=== PATIENT | male | born 1930 | race Caucasian/White ===

== ENCOUNTER 2016-12-04 13:48 | Inpatient (IN) | payer OTHER ==
[~2016-12-04] VITALS: Ht 167.6 cm; Wt 110.0 kg
[2016-12-04 14:25] LABS: EOSINOPHIL (%) 2.2 % (0-5); EOSINOPHIL COUNT 0.2 K/uL (0-0.3); HEMATOCRIT 31.8 % (38.0-50.0); IMMATURE GRANULOCYTE (%) 0.5 % (0.0-0.7); IMMATURE GRANULOCYTE COUNT 0.5 K/uL; LYMPHOCYTE COUNT 1.1 K/uL (1.0-2.8); MCHC 32.7 G/DL (30.0-36.0); MCV 91.6 FL (86-99); MEAN PLAT.VOLUME 8.5 uM^3 (9.0-12.4); MONOCYTE (%) 6.1 % (3-12); MONOCYTE COUNT 0.7 K/uL (0-0.8); NEUTROPHIL (%) 80.5 % (45-76); NEUTROPHIL COUNT 8.5 K/uL (1.8-6.4); PLATELET COUNT 409 K/uL (156-360); RBC DIS.WIDTH-CV 13.4 % (11.8-14.6); RBC DIS.WIDTH-SD 43.4 % (39-53); RED BLOOD COUNT 3.47 M/uL (4.00-5.50); WHITE BLOOD COUNT 10.6 K/uL (4.1-10.2)
[2016-12-04 14:35] LABS: CHLORIDE 107 mEq/L (99-109); POTASSIUM 4.1 mEq/L (3.7-5.4)
[2016-12-04 14:36] LABS: SODIUM 141 mEq/L (136-147)
[2016-12-04 14:37] LABS: GLUCOSE 119 mg/dL (70-99)
[2016-12-04 14:39] LABS: ANION GAP 13 MEQ/L (2-14)
[2016-12-04 14:41] LABS: GFR ESTIMATE (CALCULATED) > 59 mL/min/
[2016-12-04 14:42] LABS: UREA NITROGEN (BUN) 14 mg/dL (9-23)
[2016-12-04 14:47] LABS: TROP-I INTERPRETATION NEGATIVE; TROPONIN-I 0.01 ng/mL (0.0-0.30)
[2016-12-04] MEDS ORDERED: NORVASC5 MG PO (16:22)
[2016-12-04] MEDS ORDERED: FUROSEMIDE80 MG PO (16:23)
[2016-12-04] MEDS ORDERED: ATORVASTATIN CA10 MG PO (16:23)
[2016-12-04] MEDS ORDERED: LIDODERM 5% P1 PATCH TD (16:31)
[2016-12-04] MEDS ORDERED: POTASSIUM CHLO20 ME2 PO (16:32)
[2016-12-04] MEDS ORDERED: TAMSULOSIN HCL0.4 MG PO (16:32)
[2016-12-04] MEDS ORDERED: COLACE100 MG PO (16:36)
[2016-12-04] MEDS ORDERED: SENNA8.6 MG PO (16:38)
[2016-12-04] MEDS ORDERED: ACETAMINOPHEN325 M1 PO (16:39)
[2016-12-04 19:04] LABS: ADD MIUA? YES; BILIRUBIN NEGATIVE; BLOOD MODERATE; COLOR YELLOW ((YELLOW)); GLUCOSE (STRIP) NEGATIVE; KETONES NEGATIVE; LEUKOCYTES NEGATIVE; NITRITE NEGATIVE; PROTEIN (STRIP) NEGATIVE; SPECIFIC GRAVITY 1.013 (1.000-1.030); UROBILINOGEN 0.2 MG/DL (0.2-1.0)
[2016-12-04 19:17] LABS: BACTERIA NONE SEEN; CASTS NONE SEEN /LPF; CRYSTALS NONE SEEN; EPITHELIAL CELLS RARE; MUCUS NONE SEEN; PATHOLOGICAL CAST NONE SEEN; RED BLOOD CELLS 30-40 /HPF (0-5); SMALL ROUND CELL NONE SEEN; UCUL ADDED? NO; WHITE BLOOD CELLS 0-5 /HPF (0-5); YEAST-LIKE CELL NONE SEEN
[2016-12-04 21:19] VITALS: BP 138/67
[2016-12-05] VITALS (7 sets, daily range): BP systolic 126–165; BP diastolic 57–72
[2016-12-05 06:44] LABS: MCH 29.3 PG (29.0-34.0); MCV 91.5 FL (86-99); MEAN PLAT.VOLUME 8.8 uM^3 (9.0-12.4); PLATELET COUNT 375 K/uL (156-360); RBC DIS.WIDTH-CV 13.9 % (11.8-14.6); RBC DIS.WIDTH-SD 45.8 % (39-53); RED BLOOD COUNT 3.28 M/uL (4.00-5.50); WHITE BLOOD COUNT 8.7 K/uL (4.1-10.2)
[2016-12-05 07:13] LABS: ANION GAP 6 MEQ/L (2-14); CHLORIDE 107 MEQ/L (99-109); GFR ESTIMATE (CALCULATED) > 59 mL/min/; GLUCOSE 96 mg/dL (70-99); POTASSIUM 3.8 MEQ/L (3.7-5.4); SAMPLE HEMOLYSIS CHECK 0; SAMPLE ICTERIC CHECK 0; SAMPLE LIPEMIA CHECK 0; SODIUM 141 MEQ/L (136-147); UREA NITROGEN (BUN) 12 mg/dL (9-23)
[2016-12-06 03:45] VITALS: BP 134/86
[2016-12-06 07:22] VITALS: BP 127/58
[2016-12-06 11:47] VITALS: BP 161/91
[2016-12-06 16:00] VITALS: BP 134/63
[2016-12-06] MEDS ORDERED: LEVAQUIN500 MG PO (17:02)
[2016-12-06] MEDS ORDERED: LO-DOSE ASPIRIN81 M2 PO (17:05)
[2016-12-06 19:33] VITALS: BP 128/69
[2016-12-06 23:49] VITALS: BP 136/64
[2016-12-07 03:20] VITALS: BP 129/68
[2016-12-07 07:30] VITALS: BP 145/65
[2016-12-07] MEDS ORDERED: PRAVACHOL40 MG PO (12:34)
== END 2016-12-07 10:42 | DRG 69 ==
LOC: EME 13:48 → EDOF 16:17 → 5SOUTH 17:36 → EDOF 17:36 → 5SOUTH 20:37
PROVIDERS: Emergency Medicine; Internal Medicine
DX: G45.9 Transient cerebral ischemic attack, unspecified (principal); J18.9 Pneumonia, unspecified organism; J90 Pleural effusion, not elsewhere classified; J98.11 Atelectasis; D68.59 Other primary thrombophilia; E66.01 Morbid (severe) obesity due to excess calories; Z68.41 Body mass index [BMI] 40.0-44.9, adult; D64.9 Anemia, unspecified; G43.909 Migraine, unspecified, not intractable, without status migrainosus; I10 Essential (primary) hypertension; N28.89 Other specified disorders of kidney and ureter; Z87.891 Personal history of nicotine dependence; Z86.73 Personal history of transient ischemic attack (TIA), and cerebral infarction without residual deficits; F43.20 Adjustment disorder, unspecified
CPT/HCPCS: 70450; 70551; 71010; 71020; 80048; 81003; 84145 90; 84484; 85025; 85027; 87040; 87070; 87205; 93005; 93306; 93880; 97530 GO; 99202; 99281; 99285; J0456; J0692; J1644; J7040; J7050

== ENCOUNTER 2016-12-07 10:46 | Inpatient (IN) | payer OTHER ==
[~2016-12-07] VITALS: Ht 165.1 cm; Wt 107.9 kg
[~2016-12-07 10:46] MED LIST: ACETAMINOPHEN325 M1 PO; ATORVASTATIN CA10 MG PO; COLACE100 MG PO; FUROSEMIDE80 MG PO; LEVAQUIN500 MG PO; LIDODERM 5% P1 PATCH TD; LO-DOSE ASPIRIN81 M2 PO; NORVASC5 MG PO; POTASSIUM CHLO20 ME2 PO; SENNA8.6 MG PO; TAMSULOSIN HCL0.4 MG PO
[2016-12-07 11:12] VITALS: BP 127/62
[2016-12-07] MEDS ORDERED: PRAVACHOL40 MG PO (12:34)
[2016-12-07 15:16] VITALS: BP 148/68
[2016-12-07 23:15] VITALS: BP 158/69
[2016-12-08 05:22] LABS: HEMATOCRIT 31.1 % (38.0-50.0); MCH 29.7 PG (29.0-34.0); MCHC 32.8 G/DL (30.0-36.0); MCV 90.4 FL (86-99); MEAN PLAT.VOLUME 9.1 uM^3 (9.0-12.4); PLATELET COUNT 390 K/uL (156-360); RBC DIS.WIDTH-CV 13.4 % (11.8-14.6); RBC DIS.WIDTH-SD 44.2 % (39-53); RED BLOOD COUNT 3.44 M/uL (4.00-5.50); WHITE BLOOD COUNT 7.8 K/uL (4.1-10.2)
[2016-12-08 05:47] VITALS: BP 151/55
[2016-12-08 06:04] LABS: ALKALINE PHOSPHATASE 54 IU/L (3-129); ANION GAP 7 MEQ/L (2-14); CHLORIDE 105 MEQ/L (99-109); GFR ESTIMATE (CALCULATED) > 59 mL/min/; GLUCOSE 93 mg/dL (70-99); POTASSIUM 3.6 MEQ/L (3.7-5.4); SAMPLE HEMOLYSIS CHECK 0; SAMPLE ICTERIC CHECK 0; SAMPLE LIPEMIA CHECK 0; SODIUM 138 MEQ/L (136-147); TOTAL BILIRUBIN 0.5 MG/DL (0.0-1.0); UREA NITROGEN (BUN) 10 mg/dL (9-23)
[2016-12-09 05:32] VITALS: BP 134/63
[2016-12-09 06:02] LABS: ANION GAP 9 MEQ/L (2-14); CHLORIDE 104 MEQ/L (99-109); GFR ESTIMATE (CALCULATED) > 59 mL/min/; GLUCOSE 93 mg/dL (70-99); POTASSIUM 3.9 MEQ/L (3.7-5.4); SAMPLE HEMOLYSIS CHECK 0; SAMPLE ICTERIC CHECK 0; SAMPLE LIPEMIA CHECK 0; SODIUM 137 MEQ/L (136-147); UREA NITROGEN (BUN) 13 mg/dL (9-23)
[2016-12-09 15:39] VITALS: BP 133/62
[2016-12-10 05:57] VITALS: BP 110/58
[2016-12-10 09:09] VITALS: BP 123/57
[2016-12-10 15:47] VITALS: BP 113/55
[2016-12-10 18:10] VITALS: BP 149/69
[2016-12-11 05:39] VITALS: BP 141/69
[2016-12-11 15:23] VITALS: BP 110/59
[2016-12-12 05:33] VITALS: BP 136/63
[2016-12-12 15:19] VITALS: BP 100/50
[2016-12-13 04:19] VITALS: BP 134/60
[2016-12-13 15:20] VITALS: BP 124/60
[2016-12-13 15:23] VITALS: BP 124/60
[2016-12-13] MEDS ORDERED: NORVASC5 MG PO (21:21)
[2016-12-13] MEDS ORDERED: TAMSULOSIN HCL0.4 MG PO (21:21)
[2016-12-13] MEDS ORDERED: CITALOPRAM HBR10 MG PO (21:21)
[2016-12-13] MEDS ORDERED: FUROSEMIDE80 MG PO (21:21)
[2016-12-13] MEDS ORDERED: ATORVASTATIN CA10 MG PO (21:21)
[2016-12-13] MEDS ORDERED: POTASSIUM CHLO20 ME2 PO (21:21)
[2016-12-14 05:41] VITALS: BP 141/67
== END 2016-12-14 14:10 | disposition home health service (06) | DRG 555 ==
LOC: 2EASTP 10:46 → 3WEST 10:47
PROVIDERS: Physical Medicine & Rehabilitation Pain Medicine
PROC: F07M0ZZ Range of Motion and Joint Mobility Treatment of Musculoskeletal System - Whole Body (ICD-10-PCS; principal; 2016-12-07)
DX: R26.2 Difficulty in walking, not elsewhere classified (principal); J18.9 Pneumonia, unspecified organism; H53.2 Diplopia; R42 Dizziness and giddiness; F43.20 Adjustment disorder, unspecified; I10 Essential (primary) hypertension; N40.0 Benign prostatic hyperplasia without lower urinary tract symptoms; E66.9 Obesity, unspecified; Z86.73 Personal history of transient ischemic attack (TIA), and cerebral infarction without residual deficits; E78.5 Hyperlipidemia, unspecified; Z87.891 Personal history of nicotine dependence; E83.51 Hypocalcemia; Z68.39 Body mass index [BMI] 39.0-39.9, adult
CPT/HCPCS: 80048; 80053; 85027; 97110 GO; 97530 GP; 99202; J1644

== ENCOUNTER 2017-04-04 12:55 | Inpatient (IN) | payer OTHER, BC ==
[~2017-04-04] VITALS: Ht 162.6 cm; Wt 98.8 kg
[~2017-04-04 12:55] MED LIST changes: +CITALOPRAM HBR10 MG PO; +PRAVACHOL40 MG PO
[2017-04-04 13:33] LABS: HEMATOCRIT 32.1 % (38.0-50.0); MCHC 33.6 G/DL (30.0-36.0); MCV 86.3 FL (86-99); MEAN PLAT.VOLUME 8.5 uM^3 (9.0-12.4); PLATELET COUNT 300 K/uL (156-360); RBC DIS.WIDTH-CV 13.1 % (11.8-14.6); RBC DIS.WIDTH-SD 40.9 % (39-53); RED BLOOD COUNT 3.72 M/uL (4.00-5.50); WHITE BLOOD COUNT 7.6 K/uL (4.1-10.2)
[2017-04-04 13:56] LABS: CHLORIDE 97 mEq/L (99-109); POTASSIUM 5.5 mEq/L (3.7-5.4); SODIUM 129 mEq/L (136-147)
[2017-04-04 13:57] LABS: GLUCOSE 100 mg/dL (70-99)
[2017-04-04 13:59] LABS: ANION GAP 10 MEQ/L (2-14)
[2017-04-04 14:01] LABS: GFR ESTIMATE (CALCULATED) > 59 mL/min/
[2017-04-04 14:02] LABS: UREA NITROGEN (BUN) 18 mg/dL (9-23)
[2017-04-04 14:25] LABS: ADD MIUA? NO; BILIRUBIN NEGATIVE; BLOOD NEGATIVE; COLOR YELLOW ((YELLOW)); GLUCOSE (STRIP) NEGATIVE; KETONES NEGATIVE; LEUKOCYTES NEGATIVE; NITRITE NEGATIVE; PROTEIN (STRIP) NEGATIVE; SPECIFIC GRAVITY 1.015 (1.000-1.030); UCUL ADDED? NO; UROBILINOGEN 0.2 MG/DL (0.2-1.0)
[2017-04-04] MEDS ORDERED: MAGNESIUM400 M1 PO (16:39)
[2017-04-04] MEDS ORDERED: FUROSEMIDE40 MG PO (16:39)
[2017-04-04] MEDS ORDERED: CELEXA10 MG PO (16:40)
[2017-04-04] MEDS ORDERED: ATORVASTATIN CA80 MG PO (16:40)
[2017-04-04] MEDS ORDERED: TAMSULOSIN HCL0.4 MG PO (16:40)
[2017-04-04] MEDS ORDERED: OXYCODONE HCL5 MG PO (16:41)
[2017-04-04] MEDS ORDERED: TYLENOL EXTRA500 MG PO (16:42)
[2017-04-04 21:17] VITALS: BP 145/66
[2017-04-04 23:52] VITALS: BP 154/65
[2017-04-05 04:00] VITALS: BP 138/65
[2017-04-05 08:02] VITALS: BP 131/60
[2017-04-05 09:40] LABS: HEMATOCRIT 28.9 % (38.0-50.0); MCH 30.3 PG (29.0-34.0); MCHC 34.9 G/DL (30.0-36.0); MCV 86.8 FL (86-99); PLATELET COUNT 291 K/uL (156-360); RED BLOOD COUNT 3.33 M/uL (4.00-5.50); WHITE BLOOD COUNT 6.9 K/uL (4.1-10.2)
[2017-04-05 10:04] LABS: ANION GAP 8 MEQ/L (2-14); CHLORIDE 96 MEQ/L (99-109); GFR ESTIMATE (CALCULATED) > 59 mL/min/; GLUCOSE 89 mg/dL (70-99); POTASSIUM 4.4 MEQ/L (3.7-5.4); SAMPLE HEMOLYSIS CHECK 0; SAMPLE ICTERIC CHECK 0; SAMPLE LIPEMIA CHECK 0; SODIUM 129 MEQ/L (136-147); UREA NITROGEN (BUN) 14 mg/dL (9-23)
[2017-04-05 12:07] LABS: POINT-OF-CARE METER ID UU14174225
[2017-04-05 12:35] VITALS: BP 124/68
[2017-04-05 15:41] VITALS: BP 160/72
[2017-04-05 19:43] VITALS: BP 116/63
[2017-04-06] VITALS (7 sets, daily range): BP systolic 110–140; BP diastolic 53–81
[2017-04-06 09:33] LABS: HEMATOCRIT 30.9 % (38.0-50.0); MCH 29.9 PG (29.0-34.0); MCV 85.6 FL (86-99); MEAN PLAT.VOLUME 8.9 uM^3 (9.0-12.4); NRBC (%) 0.4 /100 WBC (0-0); PLATELET COUNT 310 K/uL (156-360); RBC DIS.WIDTH-SD 40.1 % (39-53); RED BLOOD COUNT 3.61 M/uL (4.00-5.50); WHITE BLOOD COUNT 5.7 K/uL (4.1-10.2)
[2017-04-06 09:58] LABS: ANION GAP 10 MEQ/L (2-14); CHLORIDE 95 MEQ/L (99-109); GFR ESTIMATE (CALCULATED) > 59 mL/min/; GLUCOSE 131 mg/dL (70-99); POTASSIUM 3.9 MEQ/L (3.7-5.4); SAMPLE HEMOLYSIS CHECK 0; SAMPLE ICTERIC CHECK 0; SAMPLE LIPEMIA CHECK 0; SODIUM 127 MEQ/L (136-147); UREA NITROGEN (BUN) 12 mg/dL (9-23)
[2017-04-07 03:52] VITALS: BP 120/64
[2017-04-07 08:24] VITALS: BP 133/78
[2017-04-07 10:52] LABS: C DIFF TOXIN NEGATIVE (NEGATIVE)
[2017-04-07 10:53] LABS: SPECIMEN PROCESSING CONTROL PASS
[2017-04-07 10:54] LABS: PROBE CHECK PASS
[2017-04-07 11:15] LABS: HEMATOCRIT 28.1 % (38.0-50.0); MCH 30.5 PG (29.0-34.0); MCHC 35.9 G/DL (30.0-36.0); MCV 84.9 FL (86-99); MEAN PLAT.VOLUME 8.9 uM^3 (9.0-12.4); PLATELET COUNT 326 K/uL (156-360); RBC DIS.WIDTH-CV 13.2 % (11.8-14.6); RBC DIS.WIDTH-SD 40.9 % (39-53); RED BLOOD COUNT 3.31 M/uL (4.00-5.50); WHITE BLOOD COUNT 7.3 K/uL (4.1-10.2)
[2017-04-07 11:43] LABS: ANION GAP 9 MEQ/L (2-14); CHLORIDE 102 MEQ/L (99-109); GFR ESTIMATE (CALCULATED) > 59 mL/min/; GLUCOSE 141 mg/dL (70-99); POTASSIUM 3.3 MEQ/L (3.7-5.4); SAMPLE HEMOLYSIS CHECK 0; SAMPLE ICTERIC CHECK 0; SAMPLE LIPEMIA CHECK 0; SODIUM 133 MEQ/L (136-147); UREA NITROGEN (BUN) 13 mg/dL (9-23)
[2017-04-07 11:53] VITALS: BP 144/62
[2017-04-07 15:42] VITALS: BP 149/71
[2017-04-07 20:02] VITALS: BP 138/64
[2017-04-07 23:49] VITALS: BP 141/61
[2017-04-08 08:14] VITALS: BP 162/84
[2017-04-08 11:52] VITALS: BP 131/63
[2017-04-08 15:55] LABS: INTER. NORMALIZED RATIO 1.2; PROTHROMBIN TIME 11.9 (9.2-11.2); PTT 27.3 (25-32)
[2017-04-08 17:42] VITALS: BP 142/92
[2017-04-08 18:29] VITALS: BP 131/63
[2017-04-08 19:53] VITALS: BP 140/64
[2017-04-09] VITALS: BP 125/60
[2017-04-09 03:39] VITALS: BP 146/87
[2017-04-09 08:01] VITALS: BP 138/69
[2017-04-09 12:31] VITALS: BP 140/69
[2017-04-09 12:42] LABS: HEMATOCRIT 32.9 % (38.0-50.0); MCHC 34.7 G/DL (30.0-36.0); MCV 86.6 FL (86-99); MEAN PLAT.VOLUME 8.8 uM^3 (9.0-12.4); PLATELET COUNT 342 K/uL (156-360); RBC DIS.WIDTH-CV 13.5 % (11.8-14.6); RBC DIS.WIDTH-SD 41.9 % (39-53); WHITE BLOOD COUNT 9.3 K/uL (4.1-10.2)
[2017-04-09 13:07] LABS: ANION GAP 9 MEQ/L (2-14); CHLORIDE 102 MEQ/L (99-109); GFR ESTIMATE (CALCULATED) > 59 mL/min/; GLUCOSE 96 mg/dL (70-99); POTASSIUM 3.3 MEQ/L (3.7-5.4); SAMPLE HEMOLYSIS CHECK 0; SAMPLE ICTERIC CHECK 0; SAMPLE LIPEMIA CHECK 0; SODIUM 135 MEQ/L (136-147); UREA NITROGEN (BUN) 12 mg/dL (9-23)
[2017-04-09 14:47] VITALS: BP 151/68
[2017-04-09 20:00] VITALS: BP 137/67
[2017-04-10] VITALS: BP 130/59
[2017-04-10 04:00] VITALS: BP 136/64
[2017-04-10 07:49] VITALS: BP 125/65
[2017-04-10 11:24] VITALS: BP 128/68
[2017-04-10 15:23] VITALS: BP 126/68
== END 2017-04-10 17:10 | DRG 193 ==
LOC: EME 12:55 → EDOF 17:10 → 5SOUTH 17:10
PROVIDERS: Emergency Medicine; Internal Medicine; Nurse Practitioner Adult Health; Radiology Diagnostic Radiology
DX: J18.9 Pneumonia, unspecified organism (principal); G93.40 Encephalopathy, unspecified; I62.02 Nontraumatic subacute subdural hemorrhage; I60.9 Nontraumatic subarachnoid hemorrhage, unspecified; R91.8 Other nonspecific abnormal finding of lung field; I10 Essential (primary) hypertension; E87.1 Hypo-osmolality and hyponatremia; E87.5 Hyperkalemia; E78.5 Hyperlipidemia, unspecified; R42 Dizziness and giddiness; I71.4 Abdominal aortic aneurysm, without rupture; R00.1 Bradycardia, unspecified; Y95 Nosocomial condition; Z87.891 Personal history of nicotine dependence; Z90.5 Acquired absence of kidney; Z85.528 Personal history of other malignant neoplasm of kidney; Z85.46 Personal history of malignant neoplasm of prostate; Z68.37 Body mass index [BMI] 37.0-37.9, adult; R47.81 Slurred speech; R47.01 Aphasia; R47.02 Dysphasia; G81.91 Hemiplegia, unspecified affecting right dominant side
CPT/HCPCS: 70450; 70551; 71010; 71020; 71250; 80048; 80202; 81003; 82533 91; 82948; 83605; 83930; 83935; 84300; 84443; 85027; 85610; 85730; 87040; 87493; 93005; 95819; 99281; 99285; J0456; J1100; J1200; J2060; J2270; J2405; J2543; J3370; J7030; J7050; S0028

== ENCOUNTER 2017-04-22 18:06 | Inpatient (IN) | payer OTHER, BC ==
[~2017-04-22] VITALS: Ht 167.6 cm; Wt 87.5 kg
[~2017-04-22 18:06] MED LIST changes: +ATORVASTATIN CA80 MG PO; +CELEXA10 MG PO; +FUROSEMIDE40 MG PO; +MAGNESIUM400 M1 PO; +OXYCODONE HCL5 MG PO; +TYLENOL EXTRA500 MG PO
[2017-04-22 19:25] LABS: CHLORIDE 102 mEq/L (99-109); POTASSIUM 4.7 mEq/L (3.7-5.4); SODIUM 134 mEq/L (136-147)
[2017-04-22 19:27] LABS: GLUCOSE 95 mg/dL (70-99)
[2017-04-22 19:28] LABS: ANION GAP 8 MEQ/L (2-14)
[2017-04-22 19:29] LABS: TOTAL BILIRUBIN 0.5 mg/dL (0.0-1.0)
[2017-04-22 19:30] LABS: BASOPHIL COUNT 0.1 K/uL (0-0.1); EOSINOPHIL (%) 1.7 % (0-5); EOSINOPHIL COUNT 0.2 K/uL (0-0.3); HEMATOCRIT 32.3 % (38.0-50.0); IMMATURE GRANULOCYTE (%) 0.7 % (0.0-0.7); IMMATURE GRANULOCYTE COUNT 0.1 K/uL; INSTRUMENT ABS NEUTROPHIL CT 8.9 K/uL; LYMPHOCYTE COUNT 1.2 K/uL (1.0-2.8); MCH 28.8 PG (29.0-34.0); MCHC 32.5 G/DL (30.0-36.0); MCV 88.7 FL (86-99); MEAN PLAT.VOLUME 8.6 uM^3 (9.0-12.4); MONOCYTE (%) 7.2 % (3-12); MONOCYTE COUNT 0.8 K/uL (0-0.8); NEUTROPHIL (%) 79.3 % (45-76); NEUTROPHIL COUNT 8.9 K/uL (1.8-6.4); PLATELET COUNT 320 K/uL (156-360); RBC DIS.WIDTH-CV 13.5 % (11.8-14.6); RED BLOOD COUNT 3.64 M/uL (4.00-5.50); WHITE BLOOD COUNT 11.2 K/uL (4.1-10.2)
[2017-04-22 19:31] LABS: ALKALINE PHOSPHATASE 83 IU/L (3-129); GFR ESTIMATE (CALCULATED) 56 mL/min/
[2017-04-22 19:32] LABS: UREA NITROGEN (BUN) 17 mg/dL (9-23)
[2017-04-22 19:33] LABS: PROTHROMBIN TIME 10.6 (9.2-11.2); PTT 25.9 (25-32)
[2017-04-22 21:21] LABS: ADD MIUA? YES; BILIRUBIN NEGATIVE; BLOOD SMALL; COLOR YELLOW ((YELLOW)); GLUCOSE (STRIP) NEGATIVE; KETONES NEGATIVE; LEUKOCYTES NEGATIVE; NITRITE NEGATIVE; PROTEIN (STRIP) NEGATIVE; UROBILINOGEN 0.2 MG/DL (0.2-1.0)
[2017-04-22 21:36] LABS: BACTERIA NONE SEEN /HPF; EPITHELIAL CELLS NONE SEEN /HPF; MUCUS TRACE /LPF; RED BLOOD CELLS 0-5 /HPF (0-5); UCUL ADDED? NO; WHITE BLOOD CELLS 0-5 /HPF (0-5)
[2017-04-22] MEDS ORDERED: CELEXA20 MG PO (22:15)
[2017-04-23 02:38] VITALS: BP 136/96
[2017-04-23 03:00] VITALS: BP 136/96
[2017-04-23 06:38] LABS: HEMATOCRIT 30.3 % (38.0-50.0); MCHC 32.3 G/DL (30.0-36.0); MCV 89.6 FL (86-99); PLATELET COUNT 259 K/uL (156-360); RBC DIS.WIDTH-CV 13.6 % (11.8-14.6); RBC DIS.WIDTH-SD 44.5 % (39-53); RED BLOOD COUNT 3.38 M/uL (4.00-5.50); WHITE BLOOD COUNT 8.4 K/uL (4.1-10.2)
[2017-04-23 07:09] LABS: ALKALINE PHOSPHATASE 73 IU/L (3-129); ANION GAP 6 MEQ/L (2-14); CHLORIDE 105 MEQ/L (99-109); GFR ESTIMATE (CALCULATED) > 59 mL/min/; GLUCOSE 87 mg/dL (70-99); POTASSIUM 4.4 MEQ/L (3.7-5.4); SAMPLE HEMOLYSIS CHECK 0; SAMPLE ICTERIC CHECK 0; SAMPLE LIPEMIA CHECK 0; SODIUM 138 MEQ/L (136-147); TOTAL BILIRUBIN 0.6 MG/DL (0.0-1.0); UREA NITROGEN (BUN) 14 mg/dL (9-23)
[2017-04-23 07:16] VITALS: BP 134/60
[2017-04-23 16:08] VITALS: BP 122/58
[2017-04-23 19:33] VITALS: BP 130/62
[2017-04-23 23:36] VITALS: BP 149/69
[2017-04-24 04:33] VITALS: BP 148/68
[2017-04-24 08:22] VITALS: BP 121/60
[2017-04-24 11:46] VITALS: BP 137/41
[2017-04-24 16:34] VITALS: BP 173/74
[2017-04-24 20:14] VITALS: BP 138/58
[2017-04-25] VITALS: BP 118/56
[2017-04-25 07:53] VITALS: BP 119/58
[2017-04-25 12:00] VITALS: BP 122/60
[2017-04-25 15:58] VITALS: BP 135/60
[2017-04-25 20:01] VITALS: BP 130/76
== END 2017-04-25 21:01 | DRG 85 ==
LOC: EME 18:06 → 3EAST 04-23 00:30 → EDOF 04-23 00:30 → 3EAST 04-23 02:25
PROVIDERS: Emergency Medicine; Thoracic Surgery (Cardiothoracic Vascular Surgery)
DX: S06.5X0A Traumatic subdural hemorrhage without loss of consciousness, initial encounter (principal); G93.41 Metabolic encephalopathy; I10 Essential (primary) hypertension; S09.8XXA Other specified injuries of head, initial encounter; N28.89 Other specified disorders of kidney and ureter; I71.4 Abdominal aortic aneurysm, without rupture; W18.30XA Fall on same level, unspecified, initial encounter; E78.5 Hyperlipidemia, unspecified; R29.6 Repeated falls; R45.1 Restlessness and agitation; R60.0 Localized edema; N40.0 Benign prostatic hyperplasia without lower urinary tract symptoms; H91.90 Unspecified hearing loss, unspecified ear; Z91.81 History of falling; Z85.46 Personal history of malignant neoplasm of prostate; Z86.73 Personal history of transient ischemic attack (TIA), and cerebral infarction without residual deficits; Y92.129 Unspecified place in nursing home as the place of occurrence of the external cause; Y93.9 Activity, unspecified; Z87.891 Personal history of nicotine dependence; S06.5X0D Traumatic subdural hemorrhage without loss of consciousness, subsequent encounter; Z86.79 Personal history of other diseases of the circulatory system
CPT/HCPCS: 70450; 71010; 72125; 72170; 80053; 81003; 85025; 85027; 85610; 85730; 92523 GN; 92610 GN; 93005; 94010; 94799; 95819; 97530 GP; 99281; 99285; J1630; J2060; J2270; J7030; S0028

== ENCOUNTER 2017-06-12 12:13 | Inpatient (IN) | payer OTHER, BC ==
[~2017-06-12] VITALS: Ht 167.6 cm; Wt 90.8 kg
[~2017-06-12 12:13] MED LIST changes: +CELEXA20 MG PO
[2017-06-12 13:26] LABS: EOSINOPHIL (%) 2.6 % (0-5); EOSINOPHIL COUNT 0.2 K/uL (0-0.3); HEMATOCRIT 30.5 % (38.0-50.0); IMMATURE GRANULOCYTE (%) 0.3 % (0.0-0.7); INSTRUMENT ABS NEUTROPHIL CT 4.5 K/uL; MCH 28.7 PG (29.0-34.0); MCHC 32.5 G/DL (30.0-36.0); MCV 88.4 FL (86-99); MEAN PLAT.VOLUME 8.5 uM^3 (9.0-12.4); MONOCYTE (%) 8.5 % (3-12); MONOCYTE COUNT 0.5 K/uL (0-0.8); NEUTROPHIL (%) 72.5 % (45-76); NEUTROPHIL COUNT 4.5 K/uL (1.8-6.4); PLATELET COUNT 252 K/uL (156-360); RBC DIS.WIDTH-CV 13.7 % (11.8-14.6); RBC DIS.WIDTH-SD 43.8 % (39-53); RED BLOOD COUNT 3.45 M/uL (4.00-5.50); WHITE BLOOD COUNT 6.3 K/uL (4.1-10.2)
[2017-06-12 13:32] LABS: ADD MIUA? NO; BILIRUBIN NEGATIVE; BLOOD NEGATIVE; COLOR STRAW ((YELLOW)); GLUCOSE (STRIP) NEGATIVE; KETONES NEGATIVE; LEUKOCYTES NEGATIVE; NITRITE NEGATIVE; PROTEIN (STRIP) NEGATIVE; SPECIFIC GRAVITY 1.009 (1.000-1.030); UROBILINOGEN 0.2 MG/DL (0.2-1.0)
[2017-06-12 13:36] LABS: CHLORIDE 104 mEq/L (99-109); POTASSIUM 4.9 mEq/L (3.7-5.4); SODIUM 136 mEq/L (136-147)
[2017-06-12 13:38] LABS: GLUCOSE 92 mg/dL (70-99)
[2017-06-12 13:40] LABS: ANION GAP 9 MEQ/L (2-14)
[2017-06-12 13:42] LABS: GFR ESTIMATE (CALCULATED) > 59 mL/min/
[2017-06-12 13:43] LABS: UREA NITROGEN (BUN) 19 mg/dL (9-23)
[2017-06-12 13:51] LABS: TROP-I INTERPRETATION NEGATIVE; TROPONIN-I < 0.01 ng/mL (0.0-0.30)
[2017-06-12] MEDS ORDERED: NORVASC5 MG PO (14:35)
[2017-06-12] MEDS ORDERED: IMODIUM A-D2 M2 PO (14:43)
[2017-06-12] MEDS ORDERED: MELATONIN5 M1 PO (14:46)
[2017-06-12 18:02] LABS: PROTHROMBIN TIME 11.1 SEC (10.2-12.9)
[2017-06-12 18:04] LABS: PTT 30.2 SEC (25-37)
[2017-06-12 19:47] VITALS: BP 158/69
[2017-06-12 20:40] LABS: HEMATOCRIT 31.1 % (38.0-50.0); MCV 88.1 FL (86-99)
[2017-06-12 21:00] LABS: TROP-I INTERPRETATION NEGATIVE; TROPONIN-I 0.01 ng/mL (0.0-0.30)
[2017-06-13] VITALS: BP 131/57
[2017-06-13 02:19] LABS: HEMATOCRIT 30.2 % (38.0-50.0); MCH 28.2 PG (29.0-34.0); MCHC 31.8 G/DL (30.0-36.0); MCV 88.6 FL (86-99); MEAN PLAT.VOLUME 8.4 uM^3 (9.0-12.4); PLATELET COUNT 254 K/uL (156-360); RBC DIS.WIDTH-CV 13.6 % (11.8-14.6); RBC DIS.WIDTH-SD 44.1 % (39-53); RED BLOOD COUNT 3.41 M/uL (4.00-5.50); WHITE BLOOD COUNT 7.9 K/uL (4.1-10.2)
[2017-06-13 02:43] LABS: TROP-I INTERPRETATION NEGATIVE; TROPONIN-I < 0.01 ng/mL (0.0-0.30)
[2017-06-13 04:00] VITALS: BP 138/63
[2017-06-13 08:30] VITALS: BP 91/53
[2017-06-13 11:50] VITALS: BP 116/56
[2017-06-13 16:00] VITALS: BP 108/57
[2017-06-13 23:07] VITALS: BP 117/58
[2017-06-14 00:43] VITALS: BP 98/47
[2017-06-14 03:00] VITALS: BP 143/87
[2017-06-14 05:49] LABS: MCH 29.4 PG (29.0-34.0); MEAN PLAT.VOLUME 8.9 uM^3 (9.0-12.4); PLATELET COUNT 273 K/uL (156-360); RBC DIS.WIDTH-CV 13.8 % (11.8-14.6); RED BLOOD COUNT 3.37 M/uL (4.00-5.50); WHITE BLOOD COUNT 6.4 K/uL (4.1-10.2)
[2017-06-14 06:11] LABS: ANION GAP 6 MEQ/L (2-14); CHLORIDE 107 MEQ/L (99-109); GFR ESTIMATE (CALCULATED) > 59 mL/min/; GLUCOSE 90 mg/dL (70-99); POTASSIUM 4.1 MEQ/L (3.7-5.4); SAMPLE HEMOLYSIS CHECK 0; SAMPLE ICTERIC CHECK 0; SAMPLE LIPEMIA CHECK 0; SODIUM 140 MEQ/L (136-147); UREA NITROGEN (BUN) 19 mg/dL (9-23)
[2017-06-14 08:38] VITALS: BP 136/60
[2017-06-14 16:00] VITALS: BP 149/68
[2017-06-14 19:01] VITALS: BP 146/61
== END 2017-06-14 17:21 | disposition home health service (06) | DRG 65 ==
LOC: EME 12:13 → EDOF 14:30 → ENRESERV 14:35 → EDOF 17:34 → 4EAST 17:34 → EDOF 17:34 → CANRESERV 17:38 → ENRESERV 17:38 → EDOF 17:45 → ENRESERV 17:46 → 4EAST 19:24
PROVIDERS: Emergency Medicine; Internal Medicine; Nurse Practitioner Adult Health
DX: I61.9 Nontraumatic intracerebral hemorrhage, unspecified (principal); J44.9 Chronic obstructive pulmonary disease, unspecified; I08.1 Rheumatic disorders of both mitral and tricuspid valves; R47.01 Aphasia; R00.1 Bradycardia, unspecified; R13.10 Dysphagia, unspecified; I95.1 Orthostatic hypotension; E86.0 Dehydration; I10 Essential (primary) hypertension; Z90.5 Acquired absence of kidney; Z87.891 Personal history of nicotine dependence; Z85.46 Personal history of malignant neoplasm of prostate; I62.03 Nontraumatic chronic subdural hemorrhage; R26.81 Unsteadiness on feet; Z86.79 Personal history of other diseases of the circulatory system; Z85.118 Personal history of other malignant neoplasm of bronchus and lung; I49.3 Ventricular premature depolarization; F32.9 Major depressive disorder, single episode, unspecified; G31.9 Degenerative disease of nervous system, unspecified; H91.90 Unspecified hearing loss, unspecified ear; Z79.899 Other long term (current) drug therapy; Z85.528 Personal history of other malignant neoplasm of kidney; Z86.73 Personal history of transient ischemic attack (TIA), and cerebral infarction without residual deficits
CPT/HCPCS: 70450; 71010; 80048; 81003; 83605; 84484; 85014; 85018; 85025; 85027; 85610; 85730; 87040; 87086; 93005; 99281; 99284; J7030; S0028